=== PATIENT | female | born 1960 | race Caucasian/White ===

== ENCOUNTER 2016-06-07 14:07 | Emergency (ER) | payer OTHER ==
--- NOTE | 2016-06-07 14:29 | EDM.PDOC ---
ED HPI HEAD INJURY - General Chief Complaint: Head Injury Stated Complaint: FELL HIT HEAD / WORKERS COMP Time Seen by Provider: 06/07/16 14:29 Source of Information: Reports: Patient, RN, RN notes reviewed History Limitations: Reports: No limitations - History of Present Illness INITIAL COMMENTS - FREE TEXT/NARRATIVE: C/O slipped and fell straight backwards at work. Hit head, but denies LOC, N/V, or laceration. Also c/o low back pain/injury from the fall. Denies any other injury. Symptom Onset Date: 06/07/16 Timing/Duration: Reports: Sudden onset Location: Reports: occipital, other (lower back) Quality: Reports: ache Severity: moderate Place of Occurrence: work Improves with: none Worsens with: none Context: Reports: fall Associated Symptoms: Reports: no other symptoms - Related Data Allergies/ADRs: Allergies Allergy/AdvReac Type Severity Reaction Status Date / Time No Known Allergies Allergy Verified 06/07/16 14:19 Home Meds: Home Meds . [No Known Home Meds] 06/07/16 [History] Past Medical History Neurological History: Reports: Concussion (apprx. 2006 or 2008) Social & Family History - Family History Family Medical History: Noncontributory - Tobacco Use Smoking Status *Q: Never Smoker - Caffeine Use Caffeine Use: Reports: None - Recreational Drug Use Recreational Drug Use: No - Living Situation & Occupation Living situation: Reports: , with spouse Occupation: employed ED ROS GENERAL - Review of Systems Review Of Systems: ROS reveals no pertinent complaints other than HPI. ED EXAM, HEAD INJURY - Physical Exam Exam: See Below Exam Limited By: No limitations General Appearance: alert, WD/WN, no apparent distress Head: atraumatic, normocephalic. No: scalp lacerations, scalp swelling, scalp abrasions, scalp ecchymosis, scalp hematoma, scalp tenderness, active bleeding, Hickman's Sign Nexus Criteria: No: posterior, midline cervical tenderness, evidence of intoxication, altered level of consciousness, focal neurological deficit, painful distracting injuries Eyes: bilateral eye: EOMI, normal inspection, PERRL Ears: normal external exam, normal canal, hearing grossly normal, normal TMs Nose: normal inspection, normal mucousa, no blood Throat/Mouth: Normal inspection, Normal lips, Normal teeth, Normal gums, Normal oropharynx, Normal voice, No airway compromise Neck: non-tender, full range of motion, normal alignment, normal inspection Respiratory: no respiratory distress Cardiovascular: normal peripheral pulses Back Exam: full range of motion, muscle spasm (lumbar region, mild), paraspinal tenderness (lumbar). No: CVA tenderness (L), CVA tenderness (R), vertebral tenderness Extremities: no evidence of injury, normal range of motion, non-tender, no pedal edema, pelvis stable. 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 Departure - Departure Time of Disposition: 14:37 Disposition: Home, Self-Care 01 Condition: good Clinical Impression: Work related injury Back strain Qualifiers: Encounter type: initial encounter Qualified Code(s): S39.012A - Strain of muscle, fascia and tendon of lower back, initial encounter Accidental fall Qualifiers: Encounter type: initial encounter Qualified Code(s): W19.XXXA - Unspecified fall, initial encounter Concussion Qualifiers: Encounter type: initial encounter Loss of consciousness presence/duration: without LOC Qualified Code(s): S06.0X0A - Concussion without loss of consciousness, initial encounter Instructions: Concussion, Adult, [id number], Back Pain, Adult Forms: ED Department Discharge Additional Instructions: Concussion activity precautions for 3 weeks. No contact sports, moderate or high impact activities, or maximal physical exertion. Use ice packs to areas of pain as needed. Use over the counter Ibuprofen 200m tablets by mouth with food every 6 hours as needed for pain. Follow up in clinic for recheck of work related injury in 7 to 10 days.
== END 2016-06-07 14:56 | disposition home or self-care (01) ==
LOC: DL.ED 14:07
CPT/HCPCS: 99283